=== PATIENT | male | born 1965 | race Caucasian/White ===

== ENCOUNTER 2018-11-29 06:44 | Day surgery (SDC) | payer OTHER ==
[~2018-11-29] VITALS: Ht 177.8 cm; Wt 64.2 kg
[2018-11-29] VITALS (14 sets, daily range): BP systolic 93–134; BP diastolic 52–84; PULSE 64–96; RESP 6–18; Ht 177.8 cm; Wt 64.2 kg
[~2018-11-29 06:44] MED LIST: ERTAPENEM SODIUM 1 GM in SOD CHLORIDE 0.9% 100 ML IVPB SCH
[2018-11-29] MEDS ORDERED: LACT10SO5 PO (08:26)
[2018-11-29] MEDS ORDERED: NA P133E10 RC (08:27)
[2018-11-29] MEDS ORDERED: CRAN450T7 PO (08:27)
[2018-11-29] MEDS ORDERED: DOCU-144 PO (08:28)
[2018-11-29] MEDS ORDERED: AMIK500V2 IM (08:29)
[2018-11-29] MEDS ORDERED: MAGN400O19 PO (08:30)
[2018-11-29] MEDS ORDERED: POLY17PO6 PO (08:31)
[2018-11-29] MEDS ORDERED: MULTI PO (08:31)
[2018-11-29] MEDS ORDERED: HYDR-4011 PO (08:32)
[2018-11-29] MEDS ORDERED: SIME80TA60 PO (08:33)
[2018-11-29] MEDS ORDERED: SENN-36 PO (08:33)
[2018-11-29] MEDS ORDERED: ACET-2047 PO (08:34)
[2018-11-29] MEDS ORDERED: ACET-141 PO (08:34)
[2018-11-29] MEDS ORDERED: ASCO500C7 PO (08:35)
[2018-11-29] MEDS ORDERED: VITS42.53 TP (08:39)
[2018-11-29] MEDS ORDERED: LACTATED RINGER'S 1,000 ML IV SCH (09:00)
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
[2018-11-29] MEDS ORDERED: FENTAnyl 50 MCG/ML VIAL ONE (10:04)
[2018-11-29] MEDS ORDERED: LIDOCAINE 2% (SDV) 5 ML INJ ONE (10:04)
[2018-11-29] MEDS ORDERED: PROPOFOL 20 ML ONE (10:04)
[2018-11-29] MEDS ORDERED: MIDAZOLAM 1 MG/ML 2 ML INJ ONE (10:14)
--- NOTE | 2018-11-29 10:25 | HPN ---
Date/Time of Note Date/Time of Note DATE: 11/29/18 TIME: 10:24 Interval H&P Admission Note Pt. seen H&P reviewed: No system changes REYES NEGRON Nov 29, 2018 10:25
[2018-11-29] MEDS ORDERED: HYDROmorphONE 1 MG/5 ML IV SYRINGE IV PRN ×3 (10:30)
[2018-11-29] MEDS ORDERED: ONDANSETRON 4 MG INJ IV PRN (10:30)
[2018-11-29] MEDS ORDERED: OXYCODONE/ACETAMINOPHEN (5/325) TAB PO PRN ×2 (10:30)
[2018-11-29] MEDS ORDERED: MEPERIDINE 25 MG INJ IV PRN (10:30)
[2018-11-29] MEDS ORDERED: IOHEXOL 300MG/ML 30 ML BTL ONE (10:44)
[2018-11-29] MEDS ORDERED: ONDANSETRON 4 MG INJ ONE (11:23)
[2018-11-29] MEDS ORDERED: DEXAMETHASONE 4 MG/ML 5 ML INJ ONE (11:23)
--- NOTE | 2018-11-29 12:00 | OPR ---
Date/Time of Note Date/Time of Note DATE: 11/29/18 TIME: 11:58 Operative Report Procedure Date: Nov 29, 2018 Preoperative Diagnosis Urethral stricture Postoperative Diagnosis Same Operation/Procedure Performed cysto, retrograde urethrogram, cystogram, OIU, urethral dilation, insertion complex oneill Surgeon Isabela Internet Application Developer none Anesthesia Type: general Estimated Blood Loss: none Transfusion none Specimen none Grafts/Implants none Tubes/Drains 16 f [place]osh[place] catheter Complications none Pt Condition Post Procedure: stable Disposition: PACU Indications urethral stricture Procedure Description dict [id number] REYES NEGRON Nov 29, 2018 12:00
--- NOTE | 2018-11-29 12:01 | PDOCDIS ---
Discharge Instructions DIAGNOSIS Discharge Diagnosis Dense urethral stricture CONDITION [place] Patient Condition: Ayaan Good HOME CARE INSTRUCTIONS: [place] Diet Instructions: Ayaan Regular ACTIVITY: [place] Activity Restrictions: Ayaan Slowly Increase Activity [place] Bathing Restrictions: Ayaan Shower FOLLOW UP/APPOINTMENTS Follow-up Plan Follow up in office in 2 weeks, call for date and time REFERRALS [place] Referring Provider: REYES Messina EVAN Nov 29, 2018 12:01
--- NOTE | 2018-11-29 13:14 | PAC ---
Date/Time of Note Date/Time of Note DATE: 11/29/18 TIME: 13:14 Post-Anesthesia Notes Post-Anesthesia Note Last documented vital signs Vital Signs Date Temp Pulse Resp B/P (MAP) Pulse Ox O2 O2 Flow FiO2 Time Delivery Rate 11/29/18 66 11 115/74 99 Room Air 12:46 (88) 11/29/18 8.0 12:01 11/29/18 97.8 11:54 Activity: WNL Respiratory function: WNL Cardiovascular function: WNL Mental status: Baseline Pain reasonably controlled: Yes Hydration appropriate: Yes Nausea/Vomiting absent: Yes VALORIE ANDRADE Nov 29, 2018 13:14
--- NOTE | 2018-11-29 14:36 | OPR ---
DATE OF OPERATION: PREOPERATIVE DIAGNOSIS: Urethral stricture. POSTOPERATIVE DIAGNOSIS: Dense urethral stricture. PROCEDURE: Cystoscopy, retrograde urethrogram, cystogram, optical internal urethrotomy, urethral dil atation, complex insertion of Payne catheter. SURGEON: Riley Mar MD. COMPLICATIONS: None. DRAINS: A 16-Palauan Councill catheter. DESCRIPTION OF PROCEDURE: The patient was brought to the operating room and placed on the operating table in the supine position. He was prepped and draped in usual fashion after anesthesia was induce d. A timeout was undertaken. Appropriate pressure points were padded. He received preoperative ant ibiotic therapy including Invanz. Physical examination under anesthesia demonstrates a colostomy in the left lower quadrant as well as a midline wound that is well healed and extends to the inferior pubic region over the symphysis pubis . Rigid cystoscopy was undertaken with a 12-degree angle lens with the rigid cystoscope. The rigid cystoscope was easily inserted into the urethral meatus and at the level of the mid urethra. Dense s car tissue which was irregular in nature, was appreciated. I was unable to pass a 5-Palauan open-ende d catheter. At this juncture through the scar tissue under fluoroscopic guidance. Subsequently, a r etrograde urethrogram was undertaken with a 16-Palauan Councill ____ with a Palauan catheter which demo nstrates a dense urethral stricture. With gentle manipulation contrast was able to be instilled into a very dilated bladder. The catheter was removed and subsequently a Glidewire was placed into the m eatus and through the urethra and subsequently into the bladder without any noted difficulty. A 5-Fr ench open-ended catheter was then placed over the wire and placed into the bladder. A cystogram was undertaken which confirmed placement of the open-ended catheter into a very dilated bladder. A wire was then repositioned back into his bladder and subsequently an optical internal urethrotomy was unde rtaken under direct vision. Multiple incisions were created into the scar tissue. A very dense scar tissue was appreciated from the level of the mid portion of the anterior urethra up to the apex of t he prostate. No normal tissue could be appreciated within this region. The urethrotomies were under taken so as to follow the course of the wire. A very rigid urethra appreciated and I was unable to p ass the urethrotome into the bladder. And thus the urethrotome was removed and utilizing open-ended dilators, the urethra was subsequently dilated from 14-Palauan to 16-Palauan to 18-Palauan. Next, the r igid 17-Palauan diagnostic cystoscope was inserted into the urethra and was able to be traversed throu gh the urethral stricture. A ____ urethra was appreciated. No abnormalities of the lobes of the pro state, could be appreciated. Bladder was inspected in a systematic fashion. Marked trabeculation wa s appreciated. I was unable to find the ureteral orifices. No normal bladder lining could be apprec iated. Next, the urethra was dilated under direct vision utilizing a 22-Palauan and 25-Palauan rigid c ystoscope, which was traversed under direct vision through the scar tissue and into the bladder with maintenance of the wire in place. Next, a 16-Palauan Councill catheter was placed over the wire and a cystogram was performed demonstrating that the catheter continued to reside within the bladder. Yesi s was left to gravity drainage. He will follow up in the office where a trial of void 2 weeks' time. Potential staged intervention was reviewed today. He tolerated this well and will be discharged to home on [place] 5 one tab p.o. q.6 hours p.r.n., dispense #25, no refill. Dictated By: RILEY MOLINA/NTS Conf#: [id number] DID#: [id number]
== END 2018-11-29 15:40 | disposition home or self-care (01) ==
LOC: SDS 06:44
PROVIDERS: ATTEND Urology
DX: N35.919 Unspecified urethral stricture, male, unspecified site (principal); F17.200 Nicotine dependence, unspecified, uncomplicated
CPT/HCPCS: 52341; J1100; J2250; J2405; J3010; Q9967; Z7512; Z7610